=== PATIENT | male | born 1975 | race Caucasian/White ===

== ENCOUNTER 2021-12-05 21:42 | Emergency (ER) | payer OTHER ==
[~2021-12-05] VITALS: Ht 170.2 cm; Wt 68.0 kg
[2021-12-05 22:35] LABS: Source, Urine Clean Catch
[2021-12-05 22:41] LABS: Appearance, Urine Clear (Clear); Bilirubin, Urine Neg (Neg); Blood, Urine 2+ (Neg); Color, Urine Yellow (P-Yellow); Glucose Qualitative, Urine Neg (Neg); Ketones, Urine Neg (Neg); Leukocyte Esterase, Urine Neg (Neg); Nitrite, Urine Neg (Neg); Protein, Urine 1+ (Neg); Urobilinogen, Urine NORM (Normal)
[2021-12-05 22:54] LABS: Red Blood Cells, Urine 0-2 /hpf (0-2); White Blood Cells, Urine 0-2 /hpf (0-5)
[2021-12-05 22:55] LABS: Bacteria Mod /hpf; Squamous Epithelial Cells Rare /hpf (Few)
[2021-12-05 23:04] LABS: BASOPHILS ABSOLUTE AUTO 0.03 K/mm3 (0.00-0.23); BASOPHILS PERCENT AUTO 0 % (0-2); EOSINOPHILS ABSOLUTE AUTO 0.09 K/mm3 (0.00-0.68); EOSINOPHILS PERCENT AUTO 1 % (0-6); Hematocrit 41.1 % (37.0-53.0); IMMATURE GRAN ABSOLUTE AUTO 0.07 K/mm3 (0.00-0.10); IMMATURE GRAN PERCENT AUTO 0 % (0-1); LYMPHOCYTES ABSOLUTE AUTO 1.05 K/mm3 (0.84-5.20); LYMPHOCYTES PERCENT AUTO 7 % (21-46); MONOCYTES ABSOLUTE AUTO 1.35 K/mm3 (0.16-1.47); MONOCYTES PERCENT AUTO 9 % (4-13); Mean Corpuscular HGB 30.8 pg (26.0-34.0); Mean Corpuscular HGB Conc 34.1 g/dL (31.5-36.5); Mean Corpuscular Volume 91 fL (80-100); NEUTROPHILS ABSOLUTE AUTO 13.37 K/mm3 (1.96-9.15); NEUTROPHILS PERCENT AUTO 84 % (41-73); RDW Coefficient Variation 12.8 % (11.7-14.2); RDW Standard Deviation 42.3 fL (35.1-46.3); Red Blood Cell Count 4.54 M/mm3 (4.30-5.90); White Blood Cell Count 15.96 K/mm3 (4.00-11.30)
[2021-12-05 23:11] LABS: Albumin, Blood 2.8 g/dL (3.4-5.0); Albumin/Globulin Ratio 0.7 (0.8-1.8); Bilirubin, Total 0.6 mg/dL (0.1-1.0); Calcium, Blood 8.3 mg/dL (8.5-10.1); Creatinine, Blood 0.69 mg/dL (0.60-1.20); Globulin, Blood 4.2 g/dL (2.2-4.0); Potassium, Blood 4.3 mmol/L (3.5-5.5)
[2021-12-05 23:12] LABS: Mean Platelet Volume 10.8 fL (9.1-12.4); Platelet Count 219 K/mm3 (150-400)
== END 2021-12-06 00:25 | disposition left against medical advice (07) ==
LOC: ER 21:42
PROVIDERS: Physician Assistant
DX: R39.9 Unspecified symptoms and signs involving the genitourinary system (principal); Z53.21 Procedure and treatment not carried out due to patient leaving prior to being seen by health care provider
CPT/HCPCS: 80053; 81001; 85025; 87086

== ENCOUNTER 2021-12-09 05:36 | Emergency (ER) | payer OTHER ==
[~2021-12-09] VITALS: Ht 170.2 cm; Wt 68.0 kg
[~2021-12-09 05:36] MED LIST: CODACE30 PO; IBUP800 PO; SULTRIDS PO
[2021-12-09] MEDS ORDERED: Norco 5-325 Ta1 EACH PO ×2 (06:26→06:59)
[2021-12-09] MEDS ORDERED: IBUP600 PO (06:59)
[2021-12-09] MEDS ORDERED: Bactrim Ds Tab1 EACH PO (06:59)
== END 2021-12-09 07:15 | disposition home or self-care (01) ==
LOC: ER 05:36
DX: N49.2 Inflammatory disorders of scrotum (principal); Z79.899 Other long term (current) drug therapy
CPT/HCPCS: A9270; J0696